=== PATIENT | female | born 1960 | race Caucasian/White ===

== ENCOUNTER 2020-01-07 10:30 | Observation (INO) | payer MEDICAID ==
[~2020-01-07] VITALS: Ht 165.1 cm; Wt 59.9 kg
--- NOTE | 2020-01-07 11:03 | NUR ---
REPORT RECIEVED FROM NIDHI LOWE
--- NOTE | 2020-01-07 11:14 | NUR ---
PT TO IMAGING AT THIS TIME, PER REPORT PT REFUSED TO OBTAIN URINE SAMPLE. WILL ATTEMPT WHEN PT RETURNS TO [facility]
[2020-01-07 11:15] LABS: BASOPHILS % (AUTO) 0 % (0-1); EOSINOPHILS % (AUTO) 1 % (1-7); LYMPHOCYTES % (AUTO) 14 % (22-44); MEAN CORPUSCULAR HEMOGLOBIN 29.8 pg (27.0-34.8); MEAN CORPUSCULAR HGB CONC 32.8 g/dL (32.4-35.8); MEAN PLATELET VOLUME 7.4 fL (7.4-10.4); MONOCYTES % (AUTO) 9 % (2-9); NEUTROPHILS % (AUTO) 76 % (42-75); PLATELET COUNT 312 x10^3/uL (130-400); RED BLOOD COUNT 4.42 x10^6/uL (3.82-5.3); RED CELL DISTRIBUTION WIDTH 13.3 % (9.6-15.2)
[2020-01-07 11:24] LABS: ALBUMIN 3.1 g/dL (3.4-5.0); ANION GAP 6 mmol/L (5-15); CALCIUM 8.6 mg/dL (8.5-10.1); CHLORIDE 103 mmol/L (98-107)
[2020-01-07 11:36] LABS: ALANINE AMINOTRANSFERASE 15 U/L (12-78); ALKALINE PHOSPHATASE 91 U/L (45-117); BILIRUBIN,TOTAL 0.5 mg/dL (0.2-1.0); CREATININE 0.51 mg/dL (0.55-1.02); TOTAL PROTEIN 6.5 g/dL (6.4-8.2)
[2020-01-07 11:58] LABS: MD NO
--- NOTE | 2020-01-07 12:00 | NUR ---
PER PREVIOUS RN PT ON 86% ON RA, PT PLACED ON 4L TO MAINTAIN SATS 95-97%
[2020-01-07 12:38] LABS: MICROSCOPIC INDICATED
--- NOTE | 2020-01-07 12:42 | NUR ---
LATE ENTRY D/T PT CARE: PT DROWSY, DIFFICULT TO ARROUSE. SPOKE WITH DAUGHTER ON PHONE PER THIS IS ABNORMAL FOR HER. PER DAUGHTER PT LAST PAIN PILL DOSE WAS LAST NIGHT. PT RECIEVED A PAIN PATCH AT [facility] YESTERDAY THAT IS NEW FOR HER, NO IMAGING DONE THERE.
--- NOTE | 2020-01-07 13:20 | NUR ---
ERMD IN TO UPDATE PT ON POC. WILL NOTIFY DAUGHTER PT TO BE ADMITTED, VSS, NO OTHER NEEDS AT THIS TIME
[2020-01-07] MEDS ORDERED: PLEASE ENTER ALLERGIES MC SCH (14:00)
[2020-01-07] MEDS ORDERED: CEFTRIAXONE PMX 1GM/50ML 50 ML IV ONE (14:00)
[2020-01-07] MEDS ORDERED: DOXYCYCLINE 100 MG in DEXTROSE 5% 250 ML IV SCH (14:00)
[2020-01-07] MEDS ORDERED: CEFTRIAXONE PMX 1GM/50ML 50 ML ONE (14:18)
[2020-01-07 14:24] LABS: C-REACTIVE PROTEIN, QUANT 8.3 mg/dL (0.02-0.49)
[2020-01-07] MEDS ORDERED: POTASSIUM CHLORIDE 20 MEQ TAB.ER.PRT PO ONE ×2 (14:30→22:17)
[2020-01-07] MEDS ORDERED: morphine SULFATE 10 MG/ML, 1ML IVPush PRN (14:30)
[2020-01-07] MEDS ORDERED: KETOROLAC 30 MG/1 ML IV PRN (14:30)
[2020-01-07] MEDS ORDERED: ONDANSETRON 2MG/ML, 2ML IVPush PRN (14:30)
[2020-01-07] MEDS ORDERED: DOCUSATE 100 MG CAPSULE PO PRN (14:30)
[2020-01-07] MEDS ORDERED: ACETAMINOPHEN 325 MG TABLET PO PRN (14:30)
[2020-01-07] MEDS ORDERED: MEDROL 4MG DOSEPAK PO SCH (14:30)
[2020-01-07] MEDS ORDERED: MELATONIN 5 MG TABLET PO PRN (14:30)
[2020-01-07] MEDS ORDERED: LABETALOL 5MG/ML, 20ML IVPush PRN (14:30)
--- NOTE | 2020-01-07 14:44 | NUR ---
REPORT GIVEN TO RECIEVING RN, ADMITTING MD NOTIFIED OF ELEVATED D DIMER, CTA ORDERED
[2020-01-07] MEDS ORDERED: OMNIPAQUE 350 MG/ML, 75ML BOTTLE ONE (15:36)
[2020-01-07 16:14] VITALS: BP 124/80
[2020-01-07 17:27] VITALS: BP 124/80
[2020-01-07 20:40] VITALS: BP 117/76
[2020-01-07] MEDS ORDERED: DEXAMETHASONE 4 MG TABLET ONE (22:56)
[2020-01-07] MEDS: ENOXAPARIN 40 MG/0.4 ML SQ SCH (23:01)
[2020-01-08 03:08] VITALS: BP 131/81
[2020-01-08 06:13] LABS: ANION GAP 11 mmol/L (5-15); CALCIUM 8.9 mg/dL (8.5-10.1); CHLORIDE 104 mmol/L (98-107)
[2020-01-08 06:15] LABS: CREATININE 0.41 mg/dL (0.55-1.02)
[2020-01-08 08:16] VITALS: BP 118/68
[2020-01-08] MEDS: METHOCARBAMOL 500 MG TABLET PO PRN (09:01)
[2020-01-08 14:50] VITALS: BP 115/70
[2020-01-08 19:39] VITALS: BP 114/70
[2020-01-08] MEDS: CALCIUM/VITAMIN D3 250-125 TABLET PO SCH (22:22)
[2020-01-08] MEDS: ENOXAPARIN 40 MG/0.4 ML SQ SCH (22:23)
[2020-01-09 02:12] VITALS: BP 111/72
[2020-01-09 08:20] VITALS: BP 104/67
[2020-01-09] MEDS ORDERED: MORPHINE SULFATE 4 MG/ML, 1ML IVPush PRN (08:30)
[2020-01-09] MEDS ORDERED: MIDAZOLAM 1 MG/ML, 5ML ONE (10:02)
[2020-01-09] MEDS ORDERED: FENTANYL PF 100 MCG/2ML ONE (10:02)
[2020-01-09] MEDS ORDERED: FLUMAZENIL 0.1 MG/1 ML, 5ML ONE (10:02)
[2020-01-09] MEDS ORDERED: NALOXONE 1 MG/ML, 2ML ONE (10:02)
[2020-01-09] MEDS: CALCIUM/VITAMIN D3 250-125 TABLET PO SCH ×2 (11:51→22:53)
[2020-01-09 14:06] VITALS: BP 100/62
[2020-01-09 19:14] VITALS: BP 114/70
[2020-01-09] MEDS: ENOXAPARIN 40 MG/0.4 ML SQ SCH (22:54)
[2020-01-10 01:03] VITALS: BP 109/67
[2020-01-10 08:38] VITALS: BP 120/78
[2020-01-10] MEDS: CALCIUM/VITAMIN D3 250-125 TABLET PO SCH ×2 (09:00→20:21)
[2020-01-10 13:09] VITALS: BP 121/81
[2020-01-10 19:26] VITALS: BP 104/66
[2020-01-10] MEDS: ENOXAPARIN 40 MG/0.4 ML SQ SCH (20:25)
[2020-01-11 01:27] VITALS: BP 115/72
[2020-01-11 07:01] VITALS: BP 106/68
[2020-01-11] MEDS: CALCIUM/VITAMIN D3 250-125 TABLET PO SCH ×2 (08:35→22:19)
[2020-01-11] MEDS: METHOCARBAMOL 500 MG TABLET PO PRN (14:45)
[2020-01-11 15:08] VITALS: BP 130/68
[2020-01-11 19:43] VITALS: BP 100/59
[2020-01-11] MEDS: ENOXAPARIN 40 MG/0.4 ML SQ SCH (22:19)
[2020-01-12 01:31] VITALS: BP_SYST 125; BP_SYST 92; BP_DIAS 67; BP_DIAS 73
[2020-01-12] MEDS: METHOCARBAMOL 500 MG TABLET PO PRN ×2 (01:39→17:46)
[2020-01-12 06:54] VITALS: BP 107/71
[2020-01-12] MEDS: CALCIUM/VITAMIN D3 250-125 TABLET PO SCH (08:09)
[2020-01-12 12:39] VITALS: BP 99/69
[2020-01-12] MEDS ORDERED: PROPOFOL 10 MG/ML, 20ML ONE (14:55)
[2020-01-12] MEDS ORDERED: LIDOCAINE 2%, 20ML ONE (14:55)
[2020-01-12] MEDS ORDERED: GADOTERATE 7.5 MMOL/15 ML SYR ONE (15:20)
[2020-01-12] MEDS ORDERED: CALC1TAB68 PO (16:48)
[2020-01-12] MEDS ORDERED: METH500T7 PO (16:48)
[2020-01-12] MEDS ORDERED: DICL100G19 TP (16:48)
[2020-01-12] MEDS ORDERED: TRAM50TA2 PO (16:48)
== END 2020-01-12 18:34 | disposition home or self-care (01) ==
LOC: ED 13:39 → EDIP 14:13 → 3N 15:40
PROVIDERS: ADMIT Hospitalist; ATTEND Internal Medicine
DX: M48.58XA Collapsed vertebra, not elsewhere classified, sacral and sacrococcygeal region, initial encounter for fracture (principal); Z20.828 Contact with and (suspected) exposure to other viral communicable diseases; M43.17 Spondylolisthesis, lumbosacral region; J96.01 Acute respiratory failure with hypoxia; D72.829 Elevated white blood cell count, unspecified; E87.6 Hypokalemia; G93.40 Encephalopathy, unspecified; J98.11 Atelectasis; F17.210 Nicotine dependence, cigarettes, uncomplicated; Z87.81 Personal history of (healed) traumatic fracture; Z79.899 Other long term (current) drug therapy
CPT/HCPCS: 36415; 71045; 71275; 72131; 72158; 80048; 80053; 81001; 82306; 83615; 83735; 83970; 84100; 84145; 84443; 85025; 85379; 86140; 87040; 87086; 87635; 96365; 96372; 96375; 97163; 97166; 99285; A9575; G0378; J0696; J1650; J1885; J2250; J2270; J2704; J3010; J3490; J7509; Q9967; J2310

== ENCOUNTER 2020-02-17 09:33 | Emergency (ER) | payer MEDICAID ==
[~2020-02-17] VITALS: Ht 165.1 cm; Wt 59.1 kg
[~2020-02-17 09:33] MED LIST: CALC1TAB68 PO; DICL100G19 TP; METH500T7 PO; TRAM50TA2 PO
[2020-02-17] MEDS ORDERED: DIAZEPAM 5 MG/ML, 10ML VIAL IV ONE (10:00)
[2020-02-17] MEDS ORDERED: OXYcodone/APAP 5/325MG TABLET PO ONE (10:00)
--- NOTE | 2020-02-17 11:10 | NUR ---
PT TO ROOM FROM LOBBY
--- NOTE | 2020-02-17 11:13 | NUR ---
INITIAL PT CONTACT. PT PRESENTED TO ED C/O RIGHT MID BACK PAIN FOR TWO WEEKS. PT STATES RECENT ADMISSION FOR BACK PAIN. PT STATES WENT BACK TO WORK TWO DAYS AGO WHEN BACK PAIN INCREASED. "I CANT WORK FOR MORE THAN 2 HOURS WITHOUT IT SPASMING UP". PT UPRIGHT ON GURNEY WATCHING TV. PT DENIES ANY NEEDS AT THIS TIME. CALL LIGHT WITHIN REACH. WARM BLANKET PROVIDED.
[2020-02-17] MEDS ORDERED: DIAZEPAM 5 MG TABLET ONE (11:32)
[2020-02-17] MEDS ORDERED: OXYcodone/APAP 5/325MG TABLET ONE (11:33)
[2020-02-17] MEDS ORDERED: KETOROLAC 30 MG/1 ML ONE (11:50)
[2020-02-17] MEDS ORDERED: KETOROLAC 30 MG/1 ML IM ONE (12:00)
[2020-02-17] MEDS ORDERED: DIAZEPAM 5 MG TABLET PO ONE (12:00)
--- NOTE | 2020-02-17 12:03 | NUR ---
PT SITTING UPRIGHT ON GURNEY WITH EYES CLOSED, RESTING COMFORTABLY. PT DENIES ANY ADDITIONAL NEEDS AT THIS TIME. CALL LIGHT AND PERSONAL BELONINGS WITHIN REACH.
--- NOTE | 2020-02-17 12:29 | NUR ---
ERP AT BEDSIDE. PT REPORTS "I FEEL SO MUCH BETTER, THANK YOU SO MUCH". AWAITING D/C
[2020-02-17 12:59] VITALS: BP 116/73
--- NOTE | 2020-02-17 12:59 | NUR ---
Patient given discharge instructions and they have confirmed that they understand the instructions. Patient ambulatory with steady gait.
== END 2020-02-17 13:10 | disposition home or self-care (01) ==
LOC: ED 12:19
DX: S39.012A Strain of muscle, fascia and tendon of lower back, initial encounter (principal); S29.012A Strain of muscle and tendon of back wall of thorax, initial encounter; F17.210 Nicotine dependence, cigarettes, uncomplicated; Z87.311 Personal history of (healed) other pathological fracture; X58.XXXA Exposure to other specified factors, initial encounter; Y93.89 Activity, other specified; Y92.89 Other specified places as the place of occurrence of the external cause; Y99.8 Other external cause status
CPT/HCPCS: 72072; 96372; 99283; J1885; J3360